=== PATIENT | male | born 1980 | race Caucasian/White ===

== ENCOUNTER 2022-08-21 10:30 | Emergency (ER) | payer BC, OTHER ==
[~2022-08-21 10:30] MED LIST: Iopamidol 300 61% 100 ML VIAL FS ONE
[2022-08-21] MEDS ORDERED: Ketorolac Tromethamine 30 MG/ML VIAL ONE (11:05)
[2022-08-21] MEDS ORDERED: Ondansetron PF 4 MG/2 ML Vial ONE (11:05)
[2022-08-21] MEDS ORDERED: Famotidine/PF 20 mg/2ml Vial ONE (11:16)
[2022-08-21] MEDS ORDERED: diphenhydrAMINE 50 MG/ML VIAL ONE (11:16)
[2022-08-21] MEDS ORDERED: methylPREDNISolone Sod Succ/PF 125 MG/2 ML VIAL ONE (11:16)
[2022-08-21 11:17] LABS: #Basophils 0.1 10x3/uL (0.0-0.2); #Eosinphils 0.2 10x3/uL (0.0-0.5); #Monocytes 0.4 10x3/uL (0.0-1.1); #Neutrophils 2.2 10x3/uL (1.5-8.4); %Basophils 1.1 % (0.0-2.0); %Eosinophils 4.3 % (0.0-6.0); %Lymphocytes 35.6 % (18.0-47.0); %Monocytes 9.7 % (0.0-10.0); %Neutrophils 49.1 % (40.0-75.0); Hemoglobin 14.9 g/dL (13.5-17.5); Mean Corpuscular HGB CONC 33.5 g/dL (32.0-36.0); Mean Corpuscular Hemoglobin 29.1 pg (27.0-33.0); Mean Corpuscular Volume 86.9 fl (81.2-95.1); Platelet Count 269 10x3/uL (150-450); RBC Distribution Width 13.3 % (11.5-14.5); Red Blood Cell (RBC) Count 5.12 10x6/uL (4.32-5.72); White Blood Cell (WBC) Count 4.4 10x3/uL (3.5-10.5)
[2022-08-21 11:36] LABS: ALT (SGPT) 27 U/L (8-55); AST (SGOT) 24 U/L (5-34); Albumin 4.9 g/dL (3.5-5.0); Alkaline Phosphatase 56 U/L (40-110); Anion Gap 13 mmol/L (10-20); BUN (Urea Nitrogen) 13 mg/dL (8.9-20.6); Bilirubin, Total 0.5 mg/dL (0.2-1.2); Calc. Creatinine Clearance 0 mL/min (70-130); Calcium 9.5 mg/dL (7.8-10.44); Carbon Dioxide 28 mmol/L (22-29); Chloride 103 mmol/L (98-107); Estimated GFR 86; Globulin 3.2 g/dL (2.4-3.5); Glucose 86 mg/dL (70-105); Lipase 37 U/L (8-78); Potassium 3.9 mmol/L (3.5-5.1); Protein, Total 8.1 g/dL (6.0-8.3); Sodium 140 mmol/L (136-145)
== END 2022-08-21 13:12 | disposition home or self-care (01) ==
LOC: CSHERS 10:30
DX: R10.31 Right lower quadrant pain (principal)
CPT/HCPCS: 74177; 80053; 83690; 85025; 96374; 96375; J1200; J1885; J2405; J2930; Q9967; S0028

== ENCOUNTER 2023-10-04 07:05 | Outpatient (CLI) | payer BC ==
[2023-10-04] MEDS ORDERED: Iopamidol 300 61% 100 ML VIAL FS ONE (09:08)
== END 2023-10-04 07:06 | disposition home or self-care (01) ==
LOC: CSHCT 07:05
PROVIDERS: ATTEND Family Medicine
DX: R10.31 Right lower quadrant pain (principal); R10.2 Pelvic and perineal pain; N50.82 Scrotal pain; R19.5 Other fecal abnormalities; K63.89 Other specified diseases of intestine
CPT/HCPCS: 74178

== ENCOUNTER 2023-11-03 09:49 | Outpatient (CLI) | payer BC ==
[2023-11-03] MEDS ORDERED: Magnevist 469MG/ML 20 ML VIAL ONE (10:02)
== END 2023-11-03 09:50 | disposition home or self-care (01) ==
LOC: CSHMRI 09:49
PROVIDERS: ATTEND Family Medicine
DX: N41.1 Chronic prostatitis (principal)
CPT/HCPCS: 72197

== ENCOUNTER 2024-08-22 08:37 | Outpatient (CLI) | payer BC | END 2024-08-22 08:38 | disposition home or self-care (01) | LOC: CSHULT 08:37 | PROVIDERS: ATTEND Family Medicine | DX: N50.812 Left testicular pain (principal) | CPT/HCPCS: 76870; 93976 ==

== ENCOUNTER 2024-10-31 14:55 | Outpatient (CLI) | payer BC | END 2024-10-31 14:56 | disposition home or self-care (01) | LOC: CSHULT 14:55 | PROVIDERS: ATTEND Urology | DX: N50.812 Left testicular pain (principal); N43.3 Hydrocele, unspecified | CPT/HCPCS: 76870 ==

== ENCOUNTER 2024-11-24 09:23 | Outpatient (CLI) | payer BC ==
[2024-11-24] MEDS ORDERED: Magnevist 469MG/ML 20 ML VIAL ONE (10:34)
== END 2024-11-24 09:24 | disposition home or self-care (01) ==
LOC: CSHMRI 09:23
PROVIDERS: ATTEND Urology
DX: N50.812 Left testicular pain (principal)
CPT/HCPCS: 72197